=== PATIENT | female | born 1955 ===

== ENCOUNTER → 2018-05-31 07:23 | Day surgery (SDC) | payer OTHER ==
[~2018-05-31 07:23] MED LIST: Acetaminophen TAB* 325 MG PO PRN; Buffered Lidocaine 0.9% SYRIN* 5 ML/SYR SYRINGE INTRADERM ONE; Buffered Lidocaine 0.9% SYRIN* 5 ML/SYR SYRINGE ONE; Dexamethasone IV* 4 MG/ML 1 ML (4 MG) ONE; DiMENhydriNATE IV* 50 MG/ML VIAL IV PUSH PRN; DiMENhydriNATE IV* 50 MG/ML VIAL ONE; Famotidine IV* 10 MG/ML 2 ML (20 mg) IV ONE; Famotidine IV* 10 MG/ML 2 ML (20 mg) ONE; Ketorolac INJ* 30 MG/ML 1 ML VIAL ONE; Lidocaine 2% PF * 5 ML VIAL ONE; Midazolam* 1 MG/ML 5 ML VIAL (5 MG) ONE; Morphine VIAL* 10 MG/ML 1 ML VIAL ONE; Naloxone* 0.4 MG/ML 1 ML VIAL IV PRN; Ondansetron INJ* 2 MG/ML VIAL ONE; Propofol* 10 MG/ML 20 ML BTL IV PUSH ONE; Silver Nitrate/Potassium Nitr* 1 EA STICK ONE; ceFAZolin 2 GM PREMIX in ORs 2 GM/50 ML BAG IVPB ONE; fentaNYL* 50 MCG/ML 2 ML VIAL (100 MCG VIAL) IV PRN; fentaNYL* 50 MCG/ML 2 ML VIAL (100 MCG VIAL) ONE; metroNIDAZOLE IV 500 MG/100ML* 500 MG/100 ML BAG IVPB ONE
[2018-05-31 08:23] LABS: ABS Basophils 0 10^3/ul (0-0.2); ABS Eosinophils 0.1 10^3/ul (0-0.6); ABS Lymphocytes 1.8 10^3/ul (1.0-4.8); ABS Monocytes 0.5 10^3/ul (0-0.8); ABS Neutrophils 3.6 10^3/ul (1.5-7.7); ABS Nucleated RBC 0 10^3/ul; Eosinophil % 1.7 % (0-6); Hematocrit 47 % (35-47); Hemoglobin 15.9 g/dl (12.0-16.0); Mean Corpuscular HGB Conc 34 g/dl (31-36); Mean Corpuscular Hemoglobin 29 pg (27-31); Mean Corpuscular Volume 86 fL (80-97); Mean Platelet Volume 8.5 um3 (7.4-10.4); Nucleated Red Blood Cells % 0.2; Platelet Count 241 10^3/ul (150-450); Red Blood Count 5.52 10^6/ul (4.00-5.40); Red Cell Distribution Width 14 % (10.5-15)
[2018-05-31 11:25] VITALS: BP 132/77
--- NOTE | 2018-06-01 13:22 | OP ---
DATE OF OPERATION: 05/31/18 - [facility] DATE OF : 53. SURGEON: Renu Garza MD. PRE-OP DIAGNOSIS: Postmenopausal bleeding, endometrial polyps. POST-OP DIAGNOSIS: Postmenopausal bleeding, endometrial polyps. OPERATIVE PROCEDURE: Dilation and curettage, polypectomy. ESTIMATED BLOOD LOSS: Minimal. FLUIDS: Crystalloid. FINDINGS: Normal appearing vagina and cervix. Uterine cavity with a very large polyp extending into the cervical canal. COMPLICATIONS: None. SPECIMENS: Endometrial curettings and polyps. COUNTS: Were all correct. DESCRIPTION OF PROCEDURE: After informed consent was signed, the patient was taken to the operating room where she was given general anesthesia that was found to be adequate. She was prepped and draped in the dorsal lithotomy position in [place] stirrups. Two speculums were placed into the vagina to expose the cervix. The anterior lip of the cervix was grasped with a single- tooth tenaculum. The cervix was easily dilated until the MyoSure scope could be inserted and previously mentioned finding was noted. The MyoSure device was deployed to slowly remove pieces of the polyp. Due to the large size this was taking a long time and attempts were then made to detach the polyp from its base with the myosure. Several times the MyoSure device was removed and sharp curettage was used as well as the [place] forceps to remove large pieces of the polyp. Eventually it appeared that the majority of the polyp was removed. The patient had very minimal bleeding. The tenaculum was removed and the speculums removed. She was placed back in the supine position, awakened from anesthesia and taken to the recovery room in stable condition. [id number]/[facility] #: [id number] MTDD
== END | disposition home or self-care (01) ==
LOC: OR 07:23
PROVIDERS: ATTEND Obstetrics & Gynecology
DX: N84.1 Polyp of cervix uteri (principal); N95.0 Postmenopausal bleeding; E03.9 Hypothyroidism, unspecified; I10 Essential (primary) hypertension; D25.9 Leiomyoma of uterus, unspecified; Z87.891 Personal history of nicotine dependence
CPT/HCPCS: 36415; 85025; 86850; 86900; 86901; 88305; A9270-GY; J0690; J1100; J1240; J1885; J2250; J2270; J2405; J2704; J3010; J3490